=== PATIENT | female | born 1960 | race Caucasian/White ===

== ENCOUNTER 2019-07-19 10:16 | Emergency (ER) | payer OTHER ==
[~2019-07-19] VITALS: Ht 160 cm; Wt 69.4 kg
[2019-07-19] MEDS ORDERED: TOPROL XL100 M1 PO (10:32)
[2019-07-19] MEDS ORDERED: COZAAR100 MG PO (10:32)
[2019-07-19] MEDS ORDERED: MICROZIDE12.5 MG PO (10:40)
[2019-07-19] MEDS ORDERED: CATAPRES0.2 MG PO (12:23)
== END 2019-07-19 12:31 | disposition home or self-care (01) ==
LOC: ER
DX: I16.0 Hypertensive urgency (principal); I10 Essential (primary) hypertension

== ENCOUNTER 2024-06-17 04:27 | Emergency (ER) | payer OTHER ==
[~2024-06-17] VITALS: Ht 165.1 cm; Wt 72.6 kg
[~2024-06-17 04:27] MED LIST: CATAPRES0.2 MG PO; COZAAR100 MG PO; MICROZIDE12.5 MG PO; TOPROL XL100 M1 PO
[2024-06-17] MEDS ORDERED: METOCLOPRAMIDE HCL 5 MG/ML VIAL IM STA (07:41)
[2024-06-17] MEDS ORDERED: HYOSCYAMINE SULFATE 0.125 MG TAB.SUBL SL ONE (07:45)
[2024-06-17] MEDS ORDERED: LEVSIN0.125 MG PO (09:48)
[2024-06-17] MEDS ORDERED: PEPCID AC20 MG PO (09:48)
[2024-06-17] MEDS ORDERED: MIRALAX17 GM PO (09:48)
== END 2024-06-17 10:00 | disposition home or self-care (01) ==
LOC: ER 04:29
DX: K29.70 Gastritis, unspecified, without bleeding (principal); R10.9 Unspecified abdominal pain; Z91.013 Allergy to seafood

== ENCOUNTER 2024-09-19 11:38 | Emergency (ER) | payer OTHER ==
[~2024-09-19] VITALS: Ht 160 cm; Wt 72.6 kg
[~2024-09-19 11:38] MED LIST changes: +LEVSIN0.125 MG PO; +MIRALAX17 GM PO; +PEPCID AC20 MG PO
[2024-09-19] MEDS ORDERED: KETOROLAC TROMETHAMINE 30 MG VIAL IU ONE (14:00)
[2024-09-19] MEDS ORDERED: FAMOtidine 10 MG/ML (4ML VIAL) IV ONE (14:00)
[2024-09-19] MEDS ORDERED: FAMOTIDINE/PF 20 MG/2 ML VIAL ONE (14:29)
[2024-09-19] MEDS ORDERED: KETOROLAC TROMETHAMINE 30 MG VIAL ONE (14:29)
[2024-09-19 14:48] LABS: HEMATOCRIT 39.9 % (36.0-45.00); HEMOGLOBIN 12.7 g/dL (12.0-15.00); MEAN CELL VOLUME 83.3 fL (80.00-100.00); MEAN CORPUSCULAR HEMOGLOBIN 26.6 pg (27.00-32.0); MEAN CORPUSCULAR HGB CONC 31.9 g/dl (32.0-36.0); PLATELET COUNT 286 K/uL (150-450); RED BLOOD COUNT 4.78 M/uL (4.00-6.00); RED CELL DISTRIBUTION WIDTH 14.2 % (11.5-14.5)
[2024-09-19 15:18] LABS: BILIRUBIN TOTAL 0.3 mg/dL (0.3-1.2); CALCIUM 10.2 mg/dL (8.5-10.1); CREATININE SERUM 0.82 mg/dL (0.55-1.02); GFR 70.64; GLOBULINA 4.8 G/DL (2.4-3.5); POTASSIUM 4.21 mEq/L (3.5-5.1); TOTAL PROTEIN 8.8 gm/dL (6.4-8.2)
[2024-09-19 15:21] LABS: INR 1.09; PARTIAL THROMBOPLASTIN TIME 28.8 SECONDS (22.0-34.0); PROTHROMBIN TIME 11.8 SECONDS (9.0-11.5)
[2024-09-19 15:26] LABS: URINE APPEARANCE Clear; URINE BILIRRUBIN Negative (NEGATIVE); URINE BLOOD Negative; URINE COLOR Yellow; URINE GLUCOSE Negative (NEGATIVE); URINE KETONE Negative (NEGATIVE); URINE LEUKOCYTE Negative; URINE NITRATE Negative; URINE PROTEIN Negative (NEGATIVE); URINE UROBILINOGEN 0.2 E.U./dl
[2024-09-19 15:30] LABS: URINE BACTERIA 47.7 uL (0.0-1933); URINE EPITHELIAL CELLS 4.7 uL (0.0-38.8); URINE RBC 2.7 uL (0.0-20.8); URINE WBC 5.2 uL (0.0-23.2)
[2024-09-19] MEDS ORDERED: DICY20TA PO (16:51)
[2024-09-19] MEDS ORDERED: METRONIDAZOLE500 MG PO (16:51)
[2024-09-19] MEDS ORDERED: PEPCID AC20 MG PO (16:51)
[2024-09-19] MEDS ORDERED: CIPRO500 MG PO (16:51)
[2024-09-19] MEDS ORDERED: ZOFRAN8 MG PO (16:51)
== END 2024-09-19 18:52 | disposition home or self-care (01) ==
LOC: ER 11:41
PROVIDERS: General Practice
DX: R10.32 Left lower quadrant pain (principal); K57.30 Diverticulosis of large intestine without perforation or abscess without bleeding; I10 Essential (primary) hypertension; Z91.013 Allergy to seafood